=== PATIENT | female | born 1980 | race Caucasian/White ===

== ENCOUNTER 2017-08-26 08:37 | Emergency (ER) | payer BC, OTHER ==
[2017-08-26 09:28] VITALS: BP 106/61
--- NOTE | 2017-08-26 10:02 | UC ---
Throat Pain/Nasal Anselmo HPI - HPI Summary HPI Summary: sore throat x 5 days + cough, nasal congestion no fever, + chills - History of Current Complaint Chief Complaint: UCRespiratory Stated Complaint: ST/COUGH/RUST Time Seen by Provider: 08/26/17 09:38 Hx Obtained From: Patient Hx Last Menstrual Period: 08/19/17 Onset/Duration: Gradual Onset, Lasting Days - 5, Still Present Severity: Moderate Pain Intensity: 5 Cough: Nonproductive Associated Signs & Symptoms: Positive: Nasal Discharge. Negative: Wheezing, Hoarseness, Sinus Discomfort, Fever, Vomiting, Rash - Allergies/Home Medications Allergies/Adverse Reactions: Allergies Allergy/AdvReac Type Severity Reaction Status Date / Time No Known Allergies Allergy Verified 08/26/17 09:20 Home Medications: Home Medications Dm/Pseudoephed/Acetaminophen [Day-Time Multi-Symptom Co] 1 cap PO PRN 08/26/17 [ History] PMH/Surg Hx/FS Hx/Imm Hx Previously Healthy: Yes - Surgical History Surgical History: None - Family History Known Family History: Negative: Diabetes - Social History Alcohol Use: Occasionally Substance Use Type: None Smoking Status (MU): Never Smoked Tobacco Review of Systems Constitutional: Negative Skin: Negative Eyes: Negative ENT: Negative Respiratory: Negative Is Patient Immunocompromised?: No All Other Systems Reviewed And Are Negative: Yes Physical Exam Triage Information Reviewed: Yes Appearance: Well-Appearing, No Pain Distress, Well-Nourished Vital Signs: Initial Vital Signs Temp 99.4 F 08/26/17 09:21 Pulse 76 08/26/17 09:21 Resp 18 08/26/17 09:21 BP 106/61 08/26/17 09:21 Pulse Ox 99 08/26/17 09:21 Vital Signs Reviewed: Yes Eyes: Positive: Conjunctiva Clear ENT: Positive: Normal ENT inspection, Hearing grossly normal, Pharyngeal erythema, Nasal drainage, TMs normal. Negative: TM bulging, TM dull, TM red, Tonsillar swelling, Tonsillar exudate Neck: Positive: Supple, Nontender, No Lymphadenopathy Respiratory: Positive: Chest non-tender, Lungs clear, Normal breath sounds Cardiovascular: Positive: RRR, No Murmur, Pulses Normal Skin Exam: Normal Throat Pain/Nasal Course/Dx - Differential Dx/Diagnosis Provider Diagnoses: viral pharyngitis Discharge - Sign-Out/Discharge Documenting (check all that apply): Discharge/Admit/Transfer - Discharge Plan Condition: Stable Disposition: HOME Patient Education Materials: Pharyngitis (ED) Referrals: Non Staff,Doctor [Primary Care Provider] - If Needed - Billing Disposition and Condition Condition: STABLE Disposition: HOME
== END 2017-08-26 10:00 | disposition home or self-care (01) ==
LOC: UCCORT 08:37
DX: J02.8 Acute pharyngitis due to other specified organisms (principal)
CPT/HCPCS: 87651; 99201; G0463

== ENCOUNTER 2017-08-29 07:43 | Emergency (ER) | payer OTHER ==
[2017-08-29 08:03] VITALS: BP 108/68
--- NOTE | 2017-08-29 08:12 | UC ---
Ear Complaint HPI - HPI Summary HPI Summary: 36 yo female with URI symptoms x 1 week now with one day of left ear pain and decreased hearing due to fly home today no f/c - History of Current Complaint Chief Complaint: UCEar Stated Complaint: EAR (L) COMPLAINT Time Seen by Provider: 08/29/17 08:11 Hx Obtained From: Patient Hx Last Menstrual Period: 08/19/17 Onset/Duration: Gradual Onset, Lasting Hours Severity Initially: Moderate Severity Currently: None Pain Intensity: 0 Pain Scale Used: 0-10 Numeric Associated Signs/Symptoms: Positive: Hearing Loss, URI Symptoms - Allergies/Home Medications Allergies/Adverse Reactions: Allergies Allergy/AdvReac Type Severity Reaction Status Date / Time No Known Allergies Allergy Verified 08/29/17 07:56 Home Medications: Home Medications D-Methorphan/PE/Acetaminophen [Gnp Day Time Cold/Flu Rel] 1 liq PO ONCE PRN 03/08 [History Confirmed 08/29/17] Ibuprofen TAB* [Advil TAB*] 400 mg PO Q6H PRN 08/29/17 [History Confirmed ] PMH/Surg Hx/FS Hx/Imm Hx Previously Healthy: Yes - Surgical History Surgical History: None - Family History Known Family History: Positive: Hypertension Negative: Diabetes - Social History Alcohol Use: Occasionally Substance Use Type: None Smoking Status (MU): Never Smoked Tobacco Review of Systems Constitutional: Negative Skin: Negative Eyes: Negative ENT: Sore Throat, Ear Ache, Nasal Discharge, Sinus Congestion, Sinus Pain/ Tenderness Respiratory: Cough Cardiovascular: Negative Gastrointestinal: Negative Genitourinary: Negative Motor: Negative Neurovascular: Negative Musculoskeletal: Negative Neurological: Negative Psychological: Negative Is Patient Immunocompromised?: No All Other Systems Reviewed And Are Negative: Yes Physical Exam Triage Information Reviewed: Yes Appearance: Well-Appearing, No Pain Distress, Well-Nourished Vital Signs: Initial Vital Signs Temp 98.4 F 08/29/17 07:58 Pulse 54 08/29/17 07:58 Resp 16 08/29/17 07:58 BP 108/68 08/29/17 07:58 Pulse Ox 99 08/29/17 07:58 Eyes: Positive: Conjunctiva Clear ENT: Positive: Pharynx normal, Nasal congestion, TM bulging - L, TM dull - L, TM red - L. Negative: Hearing grossly normal, Nasal drainage, TMs normal Neck: Positive: Supple, Nontender Respiratory: Positive: Lungs clear, Normal breath sounds, No respiratory distress Cardiovascular: Positive: RRR, No Murmur Musculoskeletal: Positive: ROM Intact, No Edema Neurological Exam: Normal Neurological: Positive: Alert Psychological Exam: Normal Skin Exam: Normal Ear Complaint Course/Dx - Differential Dx/Diagnosis Provider Diagnoses: left otitis media. viral URI Discharge - Sign-Out/Discharge Documenting (check all that apply): Discharge/Admit/Transfer - Discharge Plan Condition: Stable Disposition: HOME Prescriptions: Amoxicillin PO (*) [Amoxicillin 875 MG (*)] 875 mg PO BID #20 tab Fluticasone NASAL SPRAY 50MCG* [Flonase NASAL SPRAY 50MCG*] 2 spray BOTH NARES BID #1 btl Patient Education Materials: Ear Infection (ED) Referrals: Non Staff,Doctor [Primary Care Provider] - 2 Weeks Additional Instructions: I suggest the following: AFRIN nasal spray 2 sprays each nostril 3x a day for three days saline nasal spray 2 sprays each nostril twice daily advil or aleve for pain - Billing Disposition and Condition Condition: STABLE Disposition: HOME
== END 2017-08-29 08:25 | disposition home or self-care (01) ==
LOC: UCCORT 07:43
DX: H66.92 Otitis media, unspecified, left ear (principal); J06.9 Acute upper respiratory infection, unspecified
CPT/HCPCS: 99212; G0463